=== PATIENT | female | born 1990 | race Caucasian/White ===

== ENCOUNTER 2017-05-24 14:33 | Emergency (ER) | payer OTHER ==
[2017-05-24 16:44] VITALS: BP 134/82
--- NOTE | 2017-05-24 17:16 | UC ---
UC General HPI - HPI Summary HPI Summary: 26 y/o female presents to the urgent care c/o diarrhea since Tuesday evening 05/22. Pt states she ate a pizza at 8pm and at 12midnight, she has abdominal cramping pain and then watery diarrhea. On Tuesday she developed nausea and vomiting. Pt states she has had 8 episodes of diarrhea and 4 episodes of vomiting. She felt warm yesterday and took a tylenol. Today she is feeling better. However she has missed worked and request an excuse. Pt denies fever today, abdominal pain, blood in the stool, SOB, chest pain, urinary symptoms. LMP; 05/04/2017 with regular menstrual cycles. Pt has not other complains. - History of Current Complaint Chief Complaint: UCGeneralIllness Stated Complaint: V&D Time Seen by Provider: 05/24/17 16:56 Hx Obtained From: Patient Onset/Duration: Sudden Onset, Lasting Days, Still Present Timing: Intermittent Episodes Lasting: - diarrhea and vomitng Onset Severity: Moderate Current Severity: Mild Pain Intensity: 0 Associated Signs & Symptoms: Positive: Diarrhea, Nausea, Vomiting. Negative: Back Pain, Dizziness, Dysuria, Headache, Hematemesis, Melena, SOB - Allergy/Home Medications Allergies/Adverse Reactions: Allergies Allergy/AdvReac Type Severity Reaction Status Date / Time Meperidine [From Demerol HCl] Allergy Severe Hives Verified 05/24/17 15:00 Home Medications: Home Medications Disulfiram TAB* [Antabuse 250 MG TAB*] 250 mg PO DAILY 05/24/17 [History Confirmed 05/24/17] Fluticasone-Salmeterol 100-50* [Advair Diskus 100-50*] 1 puff INH BID 05/24/17 [ History Confirmed 05/24/17] Naltrexone (NF) 50 mg PO DAILY 05/24/17 [History Confirmed 05/24/17] cloNIDine TAB* [Catapres 0.1 MG TAB*] 0.1 mg PO DAILY 05/24/17 [History Confirmed 05/24/17] PMH/Surg Hx/FS Hx/Imm Hx Previously Healthy: Yes Cardiovascular History: Hypertension Respiratory History: Asthma - Surgical History Surgical History: None - Family History Known Family History: Positive: Hypertension, Respiratory Disease - Social History Occupation: Employed Full-time Lives: With Family Alcohol Use: None 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: 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 Smoking Status (MU): Heavy Every Day Tobacco Smoker Type: Cigarettes Amount Used/How Often: 1/2 PPD Have You Smoked in the Last Year: Yes Review of Systems Constitutional: Negative Skin: Negative Eyes: Negative ENT: Negative Respiratory: Negative Cardiovascular: Negative Gastrointestinal: Vomiting, Diarrhea, Nausea Genitourinary: Negative Motor: Negative, Decreased ROM Musculoskeletal: Negative Neurological: Negative Psychological: Negative All Other Systems Reviewed And Are Negative: Yes Physical Exam Triage Information Reviewed: Yes Appearance: Well-Appearing, No Pain Distress, Well-Nourished, Thin Vital Signs: Initial Vital Signs Temp 98.3 F 05/24/17 14:55 Pulse 80 05/24/17 14:55 Resp 16 05/24/17 14:55 BP 138/87 05/24/17 14:55 Pulse Ox 100 05/24/17 14:55 Vital Signs Reviewed: Yes Eye Exam: Normal Eyes: Positive: Conjunctiva Clear - PERRLA, EOMI, fundi grossly normal ENT Exam: Normal ENT: Positive: Normal ENT inspection, Hearing grossly normal, Pharynx normal, TMs normal Dental Exam: Normal Neck exam: Normal Neck: Positive: Supple, Nontender, No Lymphadenopathy Respiratory Exam: Normal Respiratory: Positive: Chest non-tender, Lungs clear, Normal breath sounds Cardiovascular Exam: Normal Cardiovascular: Positive: RRR, No Murmur, Pulses Normal, Brisk Capillary Refill Abdominal Exam: Normal Abdomen Description: Positive: Nontender, No Organomegaly, Soft. Negative: CVA Tenderness (R), CVA Tenderness (L) Bowel Sounds: Positive: Present Musculoskeletal Exam: Normal Neurological Exam: Normal Psychological Exam: Normal Skin Exam: Normal Course/Dx - Course Course Of Treatment: 26 y/o female presents to the urgent care c/o diarrhea since Tuesday evening 05/22/2017. Pt states she ate a pizza at 8pm and at 12midnight, she has abdominal cramping pain and then watery diarrhea. On Tuesday she developed nausea and vomiting. Pt states she has had 8 episodes of diarrhea and 4 episodes of vomiting. She felt warm yesterday and took a tylenol. Today she is feeling better. However she has missed worked and request an excuse. Pt denies fever today, abdominal pain, blood in the stool, SOB, chest pain, urinary symptoms. LMP; 05/04/2017 with regular menstrual cycles. Pt has not other complains. Hx obtained. PE WNL. Pt Rx Zofran Po to alleviate symptoms of vomiting, advised to increase fluid intake with Pedialyte or Gatorade OTC, each soft meals and rest. Pt given excuse for work. Pt advised if abdominal pain with fever develops to immediately go to the ER. Pt understood and agreed and lleft the clinic ambulating. Pt Rx - Differential Dx - Multi-Symptom Differential Diagnoses: Urinary Tract Infection, Other - gastroenteritis, appendicitis, Provider Diagnoses: 1- Nausea and vomiting. 2-Acute Diarrhea Discharge - Discharge Plan Condition: Stable Disposition: HOME Prescriptions: Ondansetron TAB* [Zofran 4 MG Tab*] 4 mg PO Q6H PRN #12 tab PRN Reason: Vomiting Patient Education Materials: Food Poisoning (ED) Forms: *Work Release Referrals: No Primary Care Phys,NOPCP [Primary Care Provider] - [facility] [place] [facility] REFERRAL [Outside] - 3 Days Additional Instructions: Please take medication as directed to alleviate nausea and vomiting. Please increase fluid intake with Pedialyte OTC or Gatorade. Rest and start eating soft meals. If symptoms do not improve please return to the urgent care or f/u with your PCP for further evaluation and treatment. If fever develops with abdominal pain please go immediately to the ED.
== END 2017-05-24 17:28 | disposition home or self-care (01) ==
LOC: UCEAST 14:33
DX: N39.0 Urinary tract infection, site not specified (principal); K52.9 Noninfective gastroenteritis and colitis, unspecified; K37 Unspecified appendicitis; I10 Essential (primary) hypertension; Z72.0 Tobacco use
CPT/HCPCS: 99212; G0463

== ENCOUNTER 2017-07-05 08:27 | Emergency (ER) | payer OTHER ==
[2017-07-05 08:52] VITALS: BP 140/86
--- NOTE | 2017-07-05 09:57 | UC ---
Kartik Joel Thomas, [facility]ed for [facility] MD on 07/05/17 at 0954 . Throat Pain/Nasal Jaguar HPI - HPI Summary HPI Summary: The pt is a 27 y/o F [place] [facility] sinus pain that began five days ago. The pain is described as pressure and is located over the entire head. The pt rates the pain 5/10. The pain is aggravated and alleviated by nothing. 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 Pt additionally c/o nasal discharge, chills, and night sweats. She denives N/V/D. PMHx: asthma, substance abuse. PSHx: none. SHx: smoker (1/2 PPD), is currently in recovery. FHx: negative for HTN. MD Note: VS stable. BP 140/86. Not on blood pressure medication. Visit history includes a number of visits for sinus congestion. Pt has a Hx of asthma and substance abuse. Nurses Note: Sinus pain and pressure with rhinitis since - History of Current Complaint Chief Complaint: UCGeneralIllness Stated Complaint: SINUS ISSUE Time Seen by Provider: 07/05/17 09:44 Hx Obtained From: Patient Hx Last Menstrual Period: 06/21/17 Onset/Duration: Lasting Days - 5, Still Present Pain Intensity: 5 Pain Scale Used: 0-10 Numeric Associated Signs & Symptoms: Positive: Sinus Discomfort, Nasal Discharge, Other - POS: chills, night sweats - Allergies/Home Medications Allergies/Adverse Reactions: Allergies Allergy/AdvReac Type Severity Reaction Status Date / Time Meperidine [From Demerol HCl] Allergy Severe Hives Verified 07/05/17 08:52 Home Medications: Home Medications Sertraline* [Zoloft*] 100 mg PO DAILY 07/05/17 [History Confirmed 07/05/17] PMH/Surg Hx/FS Hx/Imm Hx Previously Healthy: No Respiratory History: Asthma Psychological History: Other Other Psychological History: Substance abuse - Surgical History Surgical History: None - Family History Known Family History: Positive: Hypertension, Respiratory Disease - Social History Alcohol Use: None 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: 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 Smoking Status (MU): Heavy Every Day Tobacco Smoker Type: Cigarettes Amount Used/How Often: 1/2 PPD Have You Smoked in the Last Year: Yes Review of Systems Constitutional: Chills, Other - POS: night sweats Skin: Negative Eyes: Negative ENT: Nasal Discharge, Sinus Pain/Tenderness - onset 5 days ago Respiratory: Negative Cardiovascular: Negative Gastrointestinal: Negative Genitourinary: Negative Motor: Negative Neurovascular: Negative Musculoskeletal: Negative Neurological: Negative Psychological: Negative All Other Systems Reviewed And Are Negative: Yes Physical Exam Triage Information Reviewed: Yes Vital Signs: Initial Vital Signs Temp 98.2 F 07/05/17 08:48 Pulse 72 07/05/17 08:48 Resp 18 07/05/17 08:48 BP 140/86 07/05/17 08:48 Pulse Ox 99 07/05/17 08:48 Vital Signs Reviewed: Yes - Additional Comments Appearance: The patient is well-appearing, is in no pain distress, and is well- nourished. Eyes: Conjunctiva are clear. ENT: SHE HAS MILD RIGHT MAXILLARY TENDERNESS. The hearing is grossly normal, the pharynx is normal, and the TMs are normal. There is no muffled or hoarse voice. Neck: The neck is supple and nontender. Respiratory: The chest is nontender. The lungs are clear, there are normal breath sounds, and there is no respiratory distress. Cardiovascular: Heart is regular rate and rhythm. There is no murmur. Abdomen: The abdomen is soft and nontender. There is no organomegaly. Bowel sounds: present Musculoskeletal: Strength is intact. The patient moves all extremities. Neurological: The patient is alert. Psychological: The patient displays age appropriate behavior Skin: Negative for rashes. Throat Pain/Nasal Course/Dx - Course Assessment/Plan: Pt has congestion and right maxillary sinusitis. Medications reviewd this visit. BP elevated due to current condition w/o HTN in PMH.She is diagnosed with right maxillary sinusitis. - Differential Dx/Diagnosis Provider Diagnoses: Right maxillary sinusitis Discharge - Discharge Plan Condition: Stable Disposition: HOME Prescriptions: Amoxicillin PO (*) [Amoxicillin 875 MG (*)] 875 mg PO BID #20 tab MDD 2 Patient Education Materials: Sinusitis (ED) Forms: *Gen. Provider Communication Referrals: [facility] [place] [facility] REFERRAL [Outside] - 3 Days Additional Instructions: WE DISCUSSED: You have sinusitis. You have been started on amoxicillin. See instructions below. COUGH, CONGESTION of CHEST, SINUSES OR EARS: The most important goal is to liquefy all the phlegm and get it out of your head and chest. Any illness causing cough, congestion, sore throat or sinus discomfort can be helped by doing the following: STAND UNDER SHOWER STREAM TO LOOSEN SECRETIONS. STAY AWAY FROM ANY SMOKE OR IRRITANTS. WHAT ELSE CAN HELP RELIEVE YOUR SYMPTOMS: GENERAL TYPES OF MEDICINE THAT MAY HELP DECONGESTANTS: helps relieve stuffiness and clears sinuses. Pseudoephedrine ( Sudafed or generic) is effective but you need to ask the pharmacist for it because it may be kept behind the counter. ANTIHISTAMINES: are NOT helpful in many colds and flus because they can worsen sore throat, dry eyes and mouth and cause drowsiness. Examples are diphenhydramine, doxylamine and chlorpheniramine. They can help dry you out if you are having profuse, clear drainage from the nose. EXPECTORANTS: helps thin mucous in the nose and chest, making it easier to clear the fluid out. Expectorants are in most combination cough/cold remedies and should be taken with plenty of water. Guaifenesin is the most common expectorant and it comes in pill or liquid form. Mucinex is an extended release form of guaifenesin. COUGH SUPPRESANT: reduces the body's cough reflex. Dextromethorphan is in over the counter products, but sometimes narcotics such as codeine or hydrocodone are used to suppress cough. SPECIFIC MEDICATIONS: The most important goal is to liquefy all the phlegm and get it out of your head and chest: The following medicines (in prescription form or you can buy them without prescription) may help: To help with cough: DEXTROMETHORPHAN (Vicks, Robitussin, Nyquil and other brands) To help break up phlegm: GUAIFENESIN (Mucinex, Robitussin, other brands) To help clear congestion: PSEUDOEPHEDRINE (Sudafed, Dimetapp, other brands) TRY TO CLEAR NOSE: AFRIN NASAL SPRAY: 2-3 SPRAYS PER NOSTRIL, TWICE A DAY FOR TWO DAYS ONLY. USEFUL WAYS TO FEEL BETTER WITHOUT MEDICATIONS: STAND UNDER SHOWER STREAM TO LOOSEN SECRETIONS. USE A VAPORIZOR. STAY AWAY FROM ANY SMOKE OR IRRITANTS. USE SALINE NASAL SPRAY TO KEEP FLOW OF MUCOUS FROM NOSTRILS AND SINUSES. CONSIDER USING NETI POT TO HELP WITH ALLERGIES AND CONGESTION IN THE NOSE. USE THIS THREE TIMES A WEEK. YOU CAN GET THIS AT [employer] IN [place] OR VARIOUS DRUGSTORES. DRINK LOTS OF WARM FLUIDS USEFUL HOME REMEDIES: WARM WATER GARGLES, WITH TSP OF SALT PER 8 OUNCES OF WATER, GARGLE FOR A FEW SECONDS AND SPIT OUT; GARGLE AND SPIT OUT; EVERY THREE HOURS. AND/OR: WARM WATER OR TEA, HONEY AND LEMON; 2-3 CUPS A DAY. FOR SORE THROAT: KEEP THROAT MOIST WITH LOZENGES; TEA AND HONEY. USE WARM WATER GARGLES 3-4 TIMES A DAY. FOLLOW UP: RE-CHECK IN 1O DAYS, NEEDED, IF YOU ARE NOT IMPROVING. RETURN HERE OR SEE YOUR PHYSICIAN. RE-CHECK SOONER IF INCREASED PAIN OR TEMPERATURE. The documentation as recorded by the Kartik land Thomas accurately reflects the service I personally performed and the decisions made by me, Rashaun Tafoya MD.
== END 2017-07-05 10:07 | disposition home or self-care (01) ==
LOC: UCEAST 08:27
DX: J32.0 Chronic maxillary sinusitis (principal); J45.909 Unspecified asthma, uncomplicated; F17.210 Nicotine dependence, cigarettes, uncomplicated; Z88.5 Allergy status to narcotic agent
CPT/HCPCS: 99212; G0463

== ENCOUNTER 2019-08-24 17:36 | Emergency (ER) | payer OTHER ==
[2019-08-24] MEDS ORDERED: Ketorolac INJ* 30 MG/ML 1 ML VIAL IM ONE (17:53)
[2019-08-24] MEDS ORDERED: Lidocaine 2% VISCOUS* 15 ML UDC PO ONE (17:53)
--- NOTE | 2019-08-24 17:54 | ED ---
Throat Pain/Nasal Congestion - HPI Summary HPI Summary: Complains of dental pain left lower jaw starting today. History of 2 broken molars lower left side causing intermittent pain over the past year. States this pain is worse. Has appointment with dentist this coming Tuesday, states she cannot manage pain in the meantime. Denies fever, purulent discharge, sore throat, ear pain, headache. Medical history is none. Currently taking Suboxone. - History of Current Complaint Chief Complaint: EDDentalPain Time Seen by Provider: 08/24/19 17:46 Hx Obtained From: Patient Onset/Duration: Sudden Onset, Lasting Hours Severity: Severe Associated Signs And Symptoms: Positive: Negative Cough: None - Allergies/Home Medications Allergies/Adverse Reactions: Allergies Allergy/AdvReac Type Severity Reaction Status Date / Time meperidine Allergy Anaphylatic Verified 08/24/19 17:43 Shock PMH/Surg Hx/FS Hx/Imm Hx Endocrine/Hematology History: Denies: Hx Diabetes Cardiovascular History: Denies: Hx Hypertension Respiratory History: Reports: Hx Asthma, Hx Pneumonia Denies: Hx Chronic Obstructive Pulmonary Disease (COPD) GI History: Denies: Hx Ulcer Sensory History: Denies: Hx Eye Prosthesis Opthamlomology History: Denies: Hx Legally Blind EENT History: Denies: Hx Deafness Neurological History: Denies: Hx Dementia Psychiatric History: Reports: Hx Substance Abuse - Heroin and hx of other substances Infectious Disease History: No Infectious Disease History: Denies: Hx Clostridium Difficile, Hx Hepatitis, Hx Human Immunodeficiency Virus (HIV), Hx of Known/Suspected MRSA, Hx Shingles, Hx Tuberculosis, Hx Known/ Suspected VRE, Hx Known/Suspected VRSA, History Other Infectious Disease, Traveled Outside the [place] in Last 30 Days - Family History Known Family History: Positive: Hypertension, Respiratory Disease - Social History Alcohol Use: None Substance Use Type: Reports: Heroin Substance Use Comment - Amount & Last Used: 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 Hx Tobacco Use: Yes Smoking Status (MU): Heavy Every Day Tobacco Smoker Type: Cigarettes Amount Used/How Often: 1/2 PPD Have You Smoked in the Last Year: Yes Review of Systems Constitutional: Negative Eyes: Negative Positive: Dental Pain Cardiovascular: Negative Respiratory: Negative Gastrointestinal: Negative Genitourinary: Negative Musculoskeletal: Negative Skin: Negative Neurological: Negative Psychological: Normal All Other Systems Reviewed And Are Negative: Yes Physical Exam - Summary Physical Exam Summary: No lesions, apical abscess, swelling noted. Multiple dental caries. ENT exam unremarkable. Triage Information Reviewed: Yes Vital Signs On Initial Exam: Initial Vitals Temp Pulse Resp BP Pulse Ox 97.7 F 74 17 129/84 98 08/24/19 17:40 08/24/19 17:40 08/24/19 17:40 08/24/19 17:40 08/24/19 17:40 Vital Signs Reviewed: Yes Appearance: Positive: Well-Appearing Head/Face: Positive: Normal Head/Face Inspection Eyes: Positive: Normal ENT: Positive: Normal ENT inspection Dental: Positive: Gross Decay/Caries @. Negative: Abscess @, Cellulitis @ Neck: Positive: Supple Respiratory/Lung Sounds: Positive: Clear to Auscultation Cardiovascular: Positive: Normal Abdomen Description: Positive: Nontender Musculoskeletal: Positive: Normal Neurological: Positive: Normal Psychiatric: Positive: Normal AVPU Assessment: Alert - Phi Coma Scale Best Eye Response: 4 - Spontaneous Best Motor Response: 6 - Obeys Commands Best Verbal Response: 5 - Oriented Coma Scale Total: 15 Procedures - Sedation Patient Received Moderate/Deep Sedation with Procedure: No Diagnostics - Vital Signs Vital Signs Temp Pulse Resp BP Pulse Ox 08/24/19 17:40 97.7 F 74 17 129/84 98 - Laboratory Lab Statement: Any lab studies that have been ordered have been reviewed, and results considered in the medical decision making process. EENT Course/Dx - Course Course Of Treatment: Complains of dental pain left lower jaw starting today. History of 2 broken molars lower left side causing intermittent pain over the past year. States this pain is worse. Has appointment with dentist this coming Tuesday, states she cannot manage pain in the meantime. Denies fever, purulent discharge, sore throat, ear pain, headache. Medical history is none. Currently taking Suboxone. Vital signs within normal limits. Lidocaine and Toradol here in the ED. Rx for lidocaine. Patient has follow-up with dentist in a few days. - Diagnoses Provider Diagnoses: Pain due to dental caries Discharge ED - Sign-Out/Discharge Documenting (check all that apply): Patient Departure - Discharge Plan Condition: Stable Disposition: HOME Prescriptions: Lidocaine 2% VISCOUS* [Xylocaine 2% Viscous*] 15 ml SWISH SPIT Q6H PRN #1 btl PRN Reason: Pain - Moderate Penicillin VK TAB* [Penicillin VK 250 mg Tab*] 500 mg PO QID 7 Days #28 tab Patient Education Materials: Toothache (ED) Forms: *Gen. Provider Communication Referrals: Sandy Farnsworth MD [Primary Care Provider] - Additional Instructions: Use lidocaine gel as directed for pain relief. Prescription for antibiotics or available at the pharmacy if you feel they are necessary. Alternate ibuprofen 600 mg with Tylenol 650 mg every 3 hours for tooth pain. Follow-up with your dentist at your scheduled appointment on Tuesday. - Billing Disposition and Condition Condition: STABLE Disposition: Home - Attestation Statements Provider Attestation: I was available for consult. This patient was seen by the [facility]. The patient was not presented to, seen by, or examined by me. Gato Alamo MD
[2019-08-24 19:05] VITALS: BP 114/73
== END 2019-08-24 19:04 | disposition home or self-care (01) ==
LOC: ED 17:36
DX: K02.9 Dental caries, unspecified (principal); J45.909 Unspecified asthma, uncomplicated; F17.210 Nicotine dependence, cigarettes, uncomplicated; Z88.5 Allergy status to narcotic agent
CPT/HCPCS: 96372; 99282; J1885

== ENCOUNTER 2019-12-11 17:24 | Emergency (ER) | payer OTHER ==
[2019-12-11 19:39] LABS: Influenza B Molecular POSITIVE (Negative)
[2019-12-11 19:41] LABS: Rapid Strep Molecular Negative (Negative)
--- NOTE | 2019-12-11 20:16 | ED ---
Influenza-Like Illness - HPI Summary HPI Summary: 29 year old F presenting to [facility] accompanied by male daycare manager complains of flu -like symptoms. She reports fever, green phlegm, drainage from the eyes and nose , nasal congestion, cough, and erythema of the eyes since yesterday morning 07/2020. Patient was seen at [facility] and given Tamiflu prior to ED visit. States she is here for a work note. 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 No alcohol use. The patient rates the pain 7/10 in severity. Symptoms aggravated by nothing. Symptoms alleviated by nothing . - History of Current Complaint Chief Complaint: EDFluSymptoms Time Seen by Provider: 12/11/19 19:03 Hx Obtained From: Patient Onset/Duration: Lasting Days, Still Present Severity: Moderate Associated Signs & Symptoms: Fever, Cough, Nasal Congestion - Allergy/Home Medications Allergies/Adverse Reactions: Allergies Allergy/AdvReac Type Severity Reaction Status Date / Time meperidine Allergy Anaphylatic Verified 08/24/19 17:43 Shock PMH/Surg Hx/FS Hx/Imm Hx Endocrine/Hematology History: Denies: Hx Diabetes Cardiovascular History: Denies: Hx Hypertension Respiratory History: Reports: Hx Asthma, Hx Pneumonia Denies: Hx Chronic Obstructive Pulmonary Disease (COPD) GI History: Denies: Hx Ulcer Sensory History: Denies: Hx Eye Prosthesis, Hx Legally Blind, Hx Deafness Opthamlomology History: Denies: Hx Eye Prosthesis, Hx Legally Blind Neurological History: Denies: Hx Dementia Psychiatric History: Reports: Hx Substance Abuse - Heroin and hx of other substances Infectious Disease History: No Infectious Disease History: Denies: Hx Clostridium Difficile, Hx Hepatitis, Hx Human Immunodeficiency Virus (HIV), Hx of Known/Suspected MRSA, Hx Shingles, Hx Tuberculosis, Hx Known/ Suspected VRE, Hx Known/Suspected VRSA, History Other Infectious Disease, Traveled Outside the [place] in Last 30 Days - Family History Known Family History: Positive: Hypertension, Respiratory Disease - Social History Alcohol Use: None Substance Use Type: Reports: Heroin Substance Use Comment - Amount & Last Used: 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 Hx Tobacco Use: Yes Smoking Status (MU): Heavy Every Day Tobacco Smoker Type: Cigarettes Amount Used/How Often: 1/2 PPD Have You Smoked in the Last Year: Yes Review of Systems Positive: Fever Positive: Erythema ENT: Other - green phlegm and drainage from eyes and nose Positive: Nasal Discharge Positive: Cough All Other Systems Reviewed And Are Negative: Yes Physical Exam - Summary Physical Exam Summary: VITAL SIGNS: Reviewed. GENERAL: Patient is a well-developed and nourished female who is lying comfortable in the stretcher. Patient is not in any acute respiratory distress. HEAD AND FACE: No signs of trauma. No ecchymosis, hematomas or skull depressions. No sinus tenderness. Nasal congestion, pharyngeal erythema EYES: PERRLA, EOMI x 2, Conjunctival injection, no discharge EARS: Hearing grossly intact. Ear canals and tympanic membranes are within normal limits. MOUTH: Oropharynx within normal limits. NECK: Supple, trachea is midline, no adenopathy, no JVD, no carotid bruit, no c- spine tenderness, neck with full ROM. CHEST: Symmetric, no tenderness at palpation. LUNGS: Clear to auscultation bilaterally. No wheezing or crackles. CVS: Regular rate and rhythm, S1 and S2 present, no murmurs or gallops appreciated. ABDOMEN: Soft, non-tender. No signs of distention. No rebound, no guarding, and no masses palpated. Bowel sounds are normal. EXTREMITIES: FROM in all major joints, no edema, no cyanosis or clubbing. NEURO: Alert and oriented x 3. No acute neurological deficits. Speech is normal and follows commands. SKIN: Dry and warm. Triage Information Reviewed: Yes Vital Signs On Initial Exam: Initial Vitals Temp Pulse Resp BP Pulse Ox 102.9 F 105 18 124/87 97 12/11/19 17:29 12/11/19 17:29 12/11/19 17:29 12/11/19 17:29 12/11/19 17:29 Vital Signs Reviewed: Yes Procedures - Sedation Patient Received Moderate/Deep Sedation with Procedure: No Diagnostics - Vital Signs Vital Signs Temp Pulse Resp BP Pulse Ox 12/11/19 17:29 102.9 F 105 18 124/87 97 - Laboratory Lab Results: Lab Results 12/11/19 12/11/19 Range/Units 19:25 19:25 Influenza A (Rapid) Not Reportable Influenza B (Rapid) Positive H (Negative) Group A Strep Rapid Negative (Negative) Lab Statement: Any lab studies that have been ordered have been reviewed, and results considered in the medical decision making process. Flu Symptom Course/Dx - Course Assessment/Plan: 29 year old F presenting to [facility] accompanied by male daycare manager complains of fever, green phlegm, drainage from the eyes and nose, cough, and erythema of the eyes since yesterday morning 12/10/2019. Patient was seen at [facility] and given Tamiflu prior to ED visit. States she is here for a work note. SocHx of The patient rates the pain 7/10 in severity. Symptoms aggravated by nothing. Symptoms alleviated by nothing. Influenza B is positive. Influenza A is negative. Rapid strep is negative. The patient already has the Tamiflu. She will be discharged home with follow with the primary care physician. She was given a prescription for work for the next 5 days. The patient is hemodynamically stable alert oriented 3. - Diagnoses Provider Diagnoses: Influenza B, Influenza Discharge ED - Sign-Out/Discharge Documenting (check all that apply): Patient Departure - discharge - Discharge Plan Condition: Stable Disposition: HOME Patient Education Materials: Influenza (ED) Forms: *Work Release Referrals: [facility] [Outside] Additional Instructions: FOLLOW UP WITH YOUR PRIMARY CARE PROVIDER WITHIN ONE WEEK. RETURN TO THE ED FOR ANY WORSENING OR NEW SYMPTOMS. - Billing Disposition and Condition Condition: STABLE Disposition: Home - Attestation Statements Document Initiated by Ronibe: Yes Documenting Scribe: Billy Arteaga Provider For Whom Carol Ann is Documenting (Include Credential): Dr.Walter Diego MD Scribe Attestation: Billy Joel scribed for Dr.Walter Diego MD on 12/13/19 at 2025. Scribe Documentation Reviewed: Yes Provider Attestation: The documentation as recorded by the Billy land accurately reflects the service I personally performed and the decisions made by me, Dr.Walter Diego MD Status of Scribe Document: Viewed
[2019-12-11 20:20] VITALS: BP 125/78
== END 2019-12-11 20:19 | disposition home or self-care (01) ==
LOC: ED 17:24
DX: J10.1 Influenza due to other identified influenza virus with other respiratory manifestations (principal); J45.909 Unspecified asthma, uncomplicated; F17.210 Nicotine dependence, cigarettes, uncomplicated; Z88.5 Allergy status to narcotic agent
CPT/HCPCS: 87651; 99282

== ENCOUNTER 2019-12-29 13:34 | Emergency (ER) | payer OTHER ==
[2019-12-29] MEDS ORDERED: Ketorolac *IM* INJ* 60 MG/2 ML VIAL IM ONE (14:46)
--- NOTE | 2019-12-29 15:11 | ED ---
Throat Pain/Nasal Congestion - HPI Summary HPI Summary: This patient is a 29-year-old female presenting to the ED with tenderness to the right lower jaw since this morning. She states she has a history of dental pain over this area. Denies any redness. Endorses some swelling to the right cheek. Continues to be able to eat and drink okay. States has been taking 800 mg ibuprofen every 2-4 hours due to severe pain. Patient is a recovering opioid addict and is unable to take any opioids. She denies any fevers, sweats , chills. She denies any abdominal pain, nausea, vomiting. Denies any trismus. Denies any throat pain, ear pain or maxillary sinus tenderness. Patient is eating and drinking okay. Eating on arrival. - History of Current Complaint Chief Complaint: EDDentalPain Time Seen by Provider: 12/29/19 14:12 Hx Obtained From: Patient Onset/Duration: Sudden Onset Severity: Severe Associated Signs And Symptoms: Negative: Dysphagia, FB Sensation, Drooling, Wheezing, Hoarseness - Epiglottits Risk Factors Epiglottis Risk Factors: Negative - Allergies/Home Medications Allergies/Adverse Reactions: Allergies Allergy/AdvReac Type Severity Reaction Status Date / Time meperidine Allergy Anaphylatic Verified 08/24/19 17:43 Shock Home Medications: Home Medications Atomoxetine(NF) [Strattera(NF)] 40 mg PO DAILY 12/29/19 [History Confirmed ] Ketorolac TAB * [Toradol TAB *] 10 mg PO Q6H #16 tab 12/29/19 [Rx] Penicillin VK 500 MG TAB(NF) [Penicillin VK 500 mg Tab(NF)] 500 mg PO QID #20 tab MDD 4 12/29/19 [Rx] PMH/Surg Hx/FS Hx/Imm Hx Previously Healthy: Yes Endocrine/Hematology History: Denies: Hx Diabetes Cardiovascular History: Denies: Hx Hypertension Respiratory History: Reports: Hx Asthma, Hx Pneumonia Denies: Hx Chronic Obstructive Pulmonary Disease (COPD) GI History: Denies: Hx Ulcer Sensory History: Denies: Hx Eye Prosthesis, Hx Legally Blind, Hx Deafness Opthamlomology History: Denies: Hx Eye Prosthesis, Hx Legally Blind Neurological History: Denies: Hx Dementia Psychiatric History: Reports: Hx Substance Abuse - Heroin and hx of other substances - Immunization History Hx Pertussis Vaccination: No Immunizations Up to Date: Yes Infectious Disease History: No Infectious Disease History: Denies: Hx Clostridium Difficile, Hx Hepatitis, Hx Human Immunodeficiency Virus (HIV), Hx of Known/Suspected MRSA, Hx Shingles, Hx Tuberculosis, Hx Known/ Suspected VRE, Hx Known/Suspected VRSA, History Other Infectious Disease, Traveled Outside the [place] in Last 30 Days - Family History Known Family History: Positive: Hypertension, Respiratory Disease - Social History Occupation: Unemployed Lives: With Family Alcohol Use: None Hx Substance Use: No Substance Use Type: Reports: None Substance Use Comment - Amount & Last Used: in recovery Hx Tobacco Use: Yes Smoking Status (MU): Heavy Every Day Tobacco Smoker Type: Cigarettes Amount Used/How Often: 1/2 PPD Have You Smoked in the Last Year: Yes Review of Systems Negative: Fever, Chills, Fatigue, Skin Diaphoresis Positive: Dental Pain Negative: Palpitations, Chest Pain Negative: Shortness Of Breath, Cough Negative: Arthralgia, Myalgia Skin: Negative Neurological/Mental Status: Negative All Other Systems Reviewed And Are Negative: Yes Physical Exam Triage Information Reviewed: Yes Vital Signs On Initial Exam: Initial Vitals Temp Pulse Resp BP Pulse Ox 98.8 F 99 15 150/101 96 12/29/19 13:37 12/29/19 13:37 12/29/19 13:37 12/29/19 13:37 12/29/19 13:37 Vital Signs Reviewed: Yes Appearance: Positive: Well-Appearing, Well-Nourished Skin: Positive: Warm, Skin Color Reflects Adequate Perfusion Head/Face: Positive: Normal Head/Face Inspection Eyes: Positive: EOMI, MILAN, Conjunctiva Clear ENT: Positive: Other - R sided lower dental pain Neck: Positive: Supple, No Lymphadenopathy Respiratory/Lung Sounds: Positive: Clear to Auscultation, Breath Sounds Present Cardiovascular: Positive: RRR, Pulses are Symmetrical in both Upper and Lower Extremities Musculoskeletal: Positive: Normal, Strength/ROM Intact Neurological: Positive: Speech Normal Psychiatric: Positive: Normal, Affect/Mood Appropriate AVPU Assessment: Alert Procedures - Sedation Patient Received Moderate/Deep Sedation with Procedure: No Diagnostics - Vital Signs Vital Signs Temp Pulse Resp BP Pulse Ox 12/29/19 13:37 98.8 F 99 15 150/101 96 - Laboratory Lab Statement: Any lab studies that have been ordered have been reviewed, and results considered in the medical decision making process. EENT Course/Dx - Course Course Of Treatment: This patient is evaluated for right-sided lower dental pain. She does have several broken teeth and cavities throughout. She is missing tooth #29. Pain is over tooth #29 and tooth #30. There is no exposed roots. There is tenderness over the right lower jaw without overlying cellulitis, erythema or warmth. No evidence of abscess. Patient will be given abx for possible dental infection, although no drainable abscess is seen. Will f/u with dentist. Toradol IM given. Prescription written. Patient requesting note for court mandated community service. I have agreed to provide a note that patient was seen here in our clinic, however not excusing her was not written. - Diagnoses Provider Diagnoses: Pain, dental Discharge ED - Sign-Out/Discharge Documenting (check all that apply): Patient Departure - Discharge Plan Condition: Stable Disposition: HOME Prescriptions: Ketorolac TAB * [Toradol TAB *] 10 mg PO Q6H #16 tab Penicillin VK 500 MG TAB(NF) [Penicillin VK 500 mg Tab(NF)] 500 mg PO QID #20 tab MDD 4 Patient Education Materials: Toothache (ED) Forms: *Work Release Referrals: Dot Castro MD [Primary Care Provider] - Additional Instructions: Toradol four times daily x 4 days Do not take ibuprofen while taking this medication Tylenol 650mg four times daily Please follow up with dentist as soon as possible - Billing Disposition and Condition Condition: STABLE Disposition: Home - Attestation Statements Provider Attestation: I was available for consult. This patient was seen by the [facility]. The patient was not presented to, seen by, or examined by me. Gato Alamo MD
[2019-12-29 15:20] VITALS: BP 110/74
== END 2019-12-29 15:19 | disposition home or self-care (01) ==
LOC: ED 13:34
DX: K08.89 Other specified disorders of teeth and supporting structures (principal); F17.210 Nicotine dependence, cigarettes, uncomplicated; J45.909 Unspecified asthma, uncomplicated
CPT/HCPCS: 99282; J1885